=== PATIENT | male | born 1970 | race Caucasian/White ===

== ENCOUNTER → 2018-11-01 | Outpatient (CLI) | payer BC ==
[~2018-11-01] MED LIST: Aspir 8181 MG; CARV3.125 PO; DOCU100 PO; LOSA25 PO; XARELTO20 MG PO
[2018-11-01 14:26] LABS: BASOPHILS PERCENT AUTO 0 % (0-2); EOSINOPHILS ABSOLUTE AUTO 0.01 K/mm3 (0.00-0.68); EOSINOPHILS PERCENT AUTO 0 % (0-6); Hematocrit 37.5 % (37.0-53.0); Hemoglobin 13.1 g/dL (13.5-17.5); IMMATURE GRAN ABSOLUTE AUTO 0.03 K/mm3 (0.00-0.10); IMMATURE GRAN PERCENT AUTO 1 % (0-1); LYMPHOCYTES PERCENT AUTO 20 % (21-46); MONOCYTES PERCENT AUTO 9 % (4-13); Mean Corpuscular HGB 35.5 pg (26.0-34.0); Mean Corpuscular HGB Conc 34.9 g/dL (31.5-36.5); Mean Corpuscular Volume 102 fL (80-100); NEUTROPHILS ABSOLUTE AUTO 3.77 K/mm3 (1.96-9.15); NEUTROPHILS PERCENT AUTO 70 % (41-73); RDW Coefficient Variation 15.4 % (11.7-14.2); Red Blood Cell Count 3.69 M/mm3 (4.30-5.90); White Blood Cell Count 5.41 K/mm3 (4.00-11.30)
[2018-11-01 14:31] LABS: Mean Platelet Volume 11.5 fL (9.1-12.4); Platelet Count 72 K/mm3 (150-400)
[2018-11-01 14:37] LABS: Alanine Aminotransfer (ALT/SGP 54 U/L (12-78); Albumin/Globulin Ratio 0.4 (0.8-1.8); Alk Phos 188 U/L (40-126); Anion Gap 4 mmol/L (6-16); Aspartate Aminotrans (AST/SGOT 138 U/L (12-37); Bilirubin, Total 7.3 mg/dL (0.1-1.0); Blood Urea Nitrogen 9 mg/dL (8-24); Bun/Creatinine Ratio 17.6 (12.0-20.0); CO2, Blood 33 mmol/L (21-32); Chloride, Blood 100 mmol/L (98-108); Creatinine, Blood 0.51 mg/dL (0.60-1.20); Globulin, Blood 4.6 g/dL (2.2-4.0); Glomerular Filtration Rate >60 (60-); Glucose, Blood 110 mg/dL (70-99); Potassium, Blood 3.7 mmol/L (3.5-5.5); Sodium, Blood 137 mmol/L (136-145); Total Protein, Blood 6.6 g/dL (6.4-8.2)
[2018-11-01 15:08] LABS: International Normalized Ratio 2.17; Prothrombin Time Results 21.4 Sec (9.7-11.5)
== END | disposition home or self-care (01) ==
LOC: LAB SHORT 14:21 → LAB EV 14:21
PROVIDERS: Family Medicine
DX: G71.11 Myotonic muscular dystrophy (principal)
CPT/HCPCS: 80053; 85025; 85610; 85730

== ENCOUNTER 2018-11-10 12:59 | Inpatient (IN) | payer BC, MEDICARE ==
[~2018-11-10] VITALS: Ht 170.2 cm; Wt 92.7 kg
[~2018-11-10 12:59] MED LIST changes: -Aspir 8181 MG; +Aspir 8181 MG PO; -LOSA25 PO
[2018-11-10 13:46] LABS: BASOPHILS ABSOLUTE AUTO 0.05 K/mm3 (0.00-0.23); BASOPHILS PERCENT AUTO 1 % (0-2); EOSINOPHILS ABSOLUTE AUTO 0.15 K/mm3 (0.00-0.68); EOSINOPHILS PERCENT AUTO 3 % (0-6); Hematocrit 40.7 % (37.0-53.0); Hemoglobin 13.5 g/dL (13.5-17.5); IMMATURE GRAN ABSOLUTE AUTO 0.06 K/mm3 (0.00-0.10); IMMATURE GRAN PERCENT AUTO 1 % (0-1); LYMPHOCYTES ABSOLUTE AUTO 1.15 K/mm3 (0.84-5.20); LYMPHOCYTES PERCENT AUTO 20 % (21-46); MONOCYTES ABSOLUTE AUTO 1.07 K/mm3 (0.16-1.47); MONOCYTES PERCENT AUTO 18 % (4-13); Mean Corpuscular HGB 34.8 pg (26.0-34.0); Mean Corpuscular HGB Conc 33.2 g/dL (31.5-36.5); NEUTROPHILS ABSOLUTE AUTO 3.32 K/mm3 (1.96-9.15); NEUTROPHILS PERCENT AUTO 57 % (41-73); RDW Coefficient Variation 14.9 % (11.7-14.2); RDW Standard Deviation 57.8 fL (35.1-46.3); Red Blood Cell Count 3.88 M/mm3 (4.30-5.90)
[2018-11-10 13:48] LABS: Mean Corpuscular Volume 105 fL (80-100); Mean Platelet Volume 11.5 fL (9.1-12.4); Platelet Count 66 K/mm3 (150-400)
[2018-11-10 13:57] LABS: Alanine Aminotransfer (ALT/SGP 75 U/L (12-78); Albumin, Blood 1.8 g/dL (3.4-5.0); Albumin/Globulin Ratio 0.4 (0.8-1.8); Alk Phos 209 U/L (50-136); Anion Gap 4 mmol/L (6-16); Aspartate Aminotrans (AST/SGOT 143 U/L (12-37); Bilirubin, Total 8.2 mg/dL (0.1-1.0); Blood Urea Nitrogen 8 mg/dL (8-24); Bun/Creatinine Ratio 34.5 (12.0-20.0); CO2, Blood 31 mmol/L (21-32); Calcium, Blood 7.8 mg/dL (8.5-10.1); Chloride, Blood 104 mmol/L (98-108); Creatinine, Blood 0.23 mg/dL (0.60-1.20); Globulin, Blood 4.3 g/dL (2.2-4.0); Glomerular Filtration Rate >60 (60-); Glucose, Blood 93 mg/dL (70-99); Potassium, Blood 3.5 mmol/L (3.5-5.5); Sodium, Blood 139 mmol/L (136-145); Total Protein, Blood 6.1 g/dL (6.4-8.2)
[2018-11-10 15:37] LABS: PCO2 Arterial 52.3 mmHg (35-45); PO2 Arterial 52.6 mmHg (80-100); pH Blood Arterial 7.42 (7.35-7.45)
[2018-11-10] MEDS ORDERED: Omeprazole20 M1 PO (17:09)
[2018-11-10] MEDS ORDERED: LOSA25 PO (18:05)
[2018-11-10] MEDS ORDERED: ALBU90OI INH (18:06)
[2018-11-10 18:47] LABS: Source, Urine Catheter
[2018-11-10 19:11] LABS: Blood, Urine 5+ (Neg); Glucose Qualitative, Urine Neg (Neg); Ketones, Urine Neg (Neg); Leukocyte Esterase, Urine 1+ (Neg); Nitrite, Urine Pos (Neg); Protein, Urine 2+ (Neg); Urobilinogen, Urine 4+ (Normal)
[2018-11-10 19:54] LABS: Appearance, Urine Hazy (Clear); Bilirubin, Urine 3+ (Neg); Color, Urine Amber (P-Yellow)
[2018-11-10 19:55] LABS: Red Blood Cells, Urine 50-100 /hpf (0-2)
[2018-11-10 19:56] LABS: Bacteria Many /hpf; Hyaline Casts 0-2 /lpf (0-2); Mucus Mod (0-Heavy); Squamous Epithelial Cells Not Seen /hpf (Few); Transitional Epithelial Cells Rare /hpf (0-Rare)
[2018-11-10 23:19] LABS: Hemoglobin 12.9 g/dL (13.5-17.5)
[2018-11-10 23:32] LABS: Anion Gap 6 mmol/L (6-16); Blood Urea Nitrogen 7 mg/dL (8-24); Bun/Creatinine Ratio 22.3 (12.0-20.0); CO2, Blood 32 mmol/L (21-32); Calcium, Blood 7.8 mg/dL (8.5-10.1); Chloride, Blood 102 mmol/L (98-108); Creatinine, Blood 0.31 mg/dL (0.60-1.20); Glomerular Filtration Rate >60 (60-); Glucose, Blood 92 mg/dL (70-99); Magnesium, Blood 1.9 mg/dL (1.6-2.4); Potassium, Blood 3.2 mmol/L (3.5-5.5); Sodium, Blood 140 mmol/L (136-145)
[2018-11-10 23:49] LABS: BASOPHILS ABSOLUTE AUTO 0.07 K/mm3 (0.00-0.23); BASOPHILS PERCENT AUTO 1 % (0-2); EOSINOPHILS ABSOLUTE AUTO 0.13 K/mm3 (0.00-0.68); EOSINOPHILS PERCENT AUTO 2 % (0-6); Hematocrit 39.2 % (37.0-53.0); IMMATURE GRAN ABSOLUTE AUTO 0.06 K/mm3 (0.00-0.10); IMMATURE GRAN PERCENT AUTO 1 % (0-1); LYMPHOCYTES ABSOLUTE AUTO 0.66 K/mm3 (0.84-5.20); LYMPHOCYTES PERCENT AUTO 12 % (21-46); MONOCYTES PERCENT AUTO 16 % (4-13); Mean Corpuscular HGB 35.6 pg (26.0-34.0); Mean Corpuscular HGB Conc 33.2 g/dL (31.5-36.5); Mean Corpuscular Volume 107 fL (80-100); Mean Platelet Volume 11.3 fL (9.1-12.4); NEUTROPHILS ABSOLUTE AUTO 3.88 K/mm3 (1.96-9.15); NEUTROPHILS PERCENT AUTO 68 % (41-73); Platelet Count 66 K/mm3 (150-400); RDW Coefficient Variation 14.8 % (11.7-14.2); RDW Standard Deviation 59.7 fL (35.1-46.3); Red Blood Cell Count 3.65 M/mm3 (4.30-5.90)
[2018-11-11 00:08] LABS: International Normalized Ratio 2.11; Prothrombin Time Results 20.9 Sec (9.7-11.5)
[2018-11-11 02:16] LABS: Hematocrit 32.2 % (37.0-53.0); Hemoglobin 10.5 g/dL (13.5-17.5)
[2018-11-11 05:30] LABS: BASOPHILS ABSOLUTE AUTO 0.02 K/mm3 (0.00-0.23); BASOPHILS PERCENT AUTO 0 % (0-2); EOSINOPHILS ABSOLUTE AUTO 0.07 K/mm3 (0.00-0.68); EOSINOPHILS PERCENT AUTO 2 % (0-6); Hematocrit 29.3 % (37.0-53.0); Hemoglobin 9.5 g/dL (13.5-17.5); IMMATURE GRAN ABSOLUTE AUTO 0.04 K/mm3 (0.00-0.10); IMMATURE GRAN PERCENT AUTO 1 % (0-1); LYMPHOCYTES ABSOLUTE AUTO 0.77 K/mm3 (0.84-5.20); LYMPHOCYTES PERCENT AUTO 17 % (21-46); MONOCYTES ABSOLUTE AUTO 0.66 K/mm3 (0.16-1.47); MONOCYTES PERCENT AUTO 14 % (4-13); Mean Corpuscular HGB 35.6 pg (26.0-34.0); Mean Corpuscular HGB Conc 32.4 g/dL (31.5-36.5); NEUTROPHILS ABSOLUTE AUTO 3.07 K/mm3 (1.96-9.15); NEUTROPHILS PERCENT AUTO 66 % (41-73); NRBC ABSOLUTE 0.02 K/mm3 (0.00-0.02); NRBC Auto 0.4 /100 WBC (0.0-0.2); RDW Standard Deviation 60.5 fL (35.1-46.3); Red Blood Cell Count 2.67 M/mm3 (4.30-5.90); White Blood Cell Count 4.63 K/mm3 (4.00-11.30)
[2018-11-11 05:47] LABS: International Normalized Ratio 1.63
[2018-11-11 05:48] LABS: Mean Corpuscular Volume 110 fL (80-100)
[2018-11-11 05:49] LABS: Platelet Count 44 K/mm3 (150-400)
[2018-11-11 05:50] LABS: Alanine Aminotransfer (ALT/SGP 55 U/L (12-78); Albumin, Blood 2.2 g/dL (3.4-5.0); Albumin/Globulin Ratio 0.7 (0.8-1.8); Alk Phos 122 U/L (50-136); Anion Gap 7 mmol/L (6-16); Aspartate Aminotrans (AST/SGOT 105 U/L (12-37); Bilirubin, Total 7.3 mg/dL (0.1-1.0); Blood Urea Nitrogen 7 mg/dL (8-24); Bun/Creatinine Ratio 25.5 (12.0-20.0); CO2, Blood 26 mmol/L (21-32); Calcium, Blood 7.5 mg/dL (8.5-10.1); Chloride, Blood 107 mmol/L (98-108); Creatinine, Blood 0.28 mg/dL (0.60-1.20); Globulin, Blood 3.2 g/dL (2.2-4.0); Glomerular Filtration Rate >60 (60-); Glucose, Blood 135 mg/dL (70-99); Potassium, Blood 3.6 mmol/L (3.5-5.5); Sodium, Blood 140 mmol/L (136-145); Total Protein, Blood 5.4 g/dL (6.4-8.2)
[2018-11-11 05:55] LABS: Prothrombin Time Results 16.5 Sec (9.7-11.5)
--- NOTE | 2018-11-11 07:38 | NUR ---
ASSUMING CARE AND SHIFT SUMMARY PT WAS TRANSFERED FROM PCU AND ARRIVED TO THE UNIT AT APPROX 0200. PT IS BEING TRANSFERED TO THE ICU DUE TO HYPOTENSION. PT HAS SUPRAPUBIC CATH IN PLACE THAT WAS PLACED EMERGENTLY DUE TO URINARY RETENTION AND INABILITY TO PLACE WELCH CATH IN ER. PT HAS BEEN HAVING ARASH BLOOD DRAINAGE FROM CATH. CLOTS OBSERVED IN DRAINAGE BAG. PT HAS HX OR NON-ALCOHOLIC CIRROSIS, AND MUSCULAR DYSTROPHY. PT APPEARS JAUNDICED AND IS HIGHLY LETHARGIC. PT HAS HX OF ASPIRATION AND HAS PNEUMONIA AT THIS TIME. UPON ARIVAL TO THE UNIT PT BP IS IN THE 60'S TO 70'S SYSTOLIC. DR BLANCA CALLED. ORDERS RECEIVED TO PROVIDE 500ML BOLUS OF NS, 25G ALBUMIN, 2 UNITS FFP, NS AT 75ML/HR, AND TO INITIATE LEVOPHED IF BP DOES NOT RESPOND TO OTHER MEDICATIONS/INTERVENTIONS. DR BLANCA INFORMED THAT PT ONLY HAS PERIPHERAL LINE. INSTRUCTIONS RECEIVED TO RUN LOW DOSE LEVOPHED THROUGH PERIPHERAL LINE. MEDICATIONS PROVIDED ORDERED. PT APPEARED TO BE HAVING VERY SLOW OUTPUT FROM SUPRAPUBIC CATH. BLADDER SCAN PERFORMED WITH A RESULT OF APPROX 300CC. PER REPORT AT TIME OF TRANSFER OF CARE PT HAD BLADDER SCAN VOLUME OF APPROX 200ML. DR HERNANDEZ CALLED, INSTRUCTIONS RECEIVED TO FLUSH 20ML OF STERILE SALINE THROUGH CATH LINE IF OCCLUDED. INSTRUCTIONS RECEIVED TO CALL DR HERNANDEZ FOR FURTHER INSTRUCTIONS IF LINE REMAINS OCCLUDED AND/OR IF THERE ARE ANY CONCERNS RELATED TO SUPRAPUBIC CATH. AFTER ADMINISTRATION OF ABOVE STATED MEDICATIONS PT REMAINS HYPOTENSIVE AND LEVOPHED WAS STARTED AT 6MCG/MIN. PT BP INCREASED TO THE 90'S SYSTOLIC BUT IS FLUCTUATING FROM 90'S TO 80'S SYSTOLIC. PT REMAINS AT BEDSIDE. WILL REPORT OFF TO [facility] DAY SHIFT NURSE.
--- NOTE | 2018-11-11 08:51 | NUR ---
DR. HERNANDEZ CALL TO DR. HERNANDEZ WITH UPDATE ON PT, DISCUSSED CONTINUED ARASH BLOOD OUTPUT FROM CATHETER, INCREASING BLADDER SCAN VOLUMES DESPITE OUTPUT. HE STATES TO CONTINUE TO IRRIGATE CATHETER AND TRY TO ASPIRATE CLOTS. HE STATES HE WILL PLACE LARGER DRAINAGE TUBING ON WEDNESDAY.
[2018-11-11 11:15] LABS: Hematocrit 28.8 % (37.0-53.0); Hemoglobin 9.5 g/dL (13.5-17.5); Mean Corpuscular HGB 35.3 pg (26.0-34.0); Mean Platelet Volume 11.7 fL (9.1-12.4); RDW Standard Deviation 58.8 fL (35.1-46.3); Red Blood Cell Count 2.69 M/mm3 (4.30-5.90)
[2018-11-11 11:24] LABS: Mean Corpuscular Volume 107 fL (80-100)
[2018-11-11 11:26] LABS: Platelet Count 46 K/mm3 (150-400)
--- NOTE | 2018-11-11 11:30 | NUR ---
RADIOLOGIST/DR. SMITH RADIOLOGIST DR. LEBLANC CALLED WITH CONCERNS OF CATHETER PLACEMENT, STATING HE BELIEVED BASED ON IMAGING THAT THE CATHETER MAY BE DRAINING ASCITIC FLUID AND NOT BE IN THE BLADDER. HE SPOKE WITH DR. SMITH AND ORDERS RECEIVED FOR BEDSIDE ULTRASOUND TO CHECK FOR PLACEMENT OF CATHETER. BASED ON ULTRASOUND, CATHETER NOT IN THE BLADDER. DR. SMITH CALLED TO [facility] TO CONSULT UROLOGY - PLAN TO TRANSFER PT TO [facility] UNDER CARE OF DR. GRESHAM.
--- NOTE | 2018-11-11 12:22 | NUR ---
[facility] TRANSFER PT TO [facility] ER FOR PROCEDURE WITH UROLOGY DR. GRESHAM. CURRENT PLAN IS FOR PT TO BE TRANSPORTED BACK HERE AFTER PROCEDURE. PT TRANSFERRED WITH NS INFUSING AT 75ML/HR, LEVOPHED ON STANDBY BUT SENT WITH EMS IN CASE PT BECOMES HYPOTENSIVE AGAIN. PT'S [place] ACCOMPANIED FOR TRANSPORT.
--- NOTE | 2018-11-11 17:21 | NUR ---
DR. SMITH CALLED AND STATES HE SPOKE WITH [facility] PHYSICIAN AND PT IS GOING TO BE STAYING AT [facility]
== END 2018-11-11 17:23 | disposition short-term general hospital (02) | DRG 698 ==
LOC: ER 12:59 → ICUE 18:27 → ERHOLD 18:27 → PCU 21:25 → ICUE 11-11 01:49
PROVIDERS: Internal Medicine; Internal Medicine Gastroenterology; Nurse Practitioner Acute Care; ADMIT Internal Medicine
PROC: 02HV33Z Insertion of Infusion Device into Superior Vena Cava, Percutaneous Approach (ICD-10-PCS; principal; 2018-11-10)
PROC: 3E043XZ Introduction of Vasopressor into Central Vein, Percutaneous Approach (ICD-10-PCS; 2018-11-10)
PROC: 30233K1 Transfusion of Nonautologous Frozen Plasma into Peripheral Vein, Percutaneous Approach (ICD-10-PCS; 2018-11-10)
PROC: 0T9B30Z Drainage of Bladder with Drainage Device, Percutaneous Approach (ICD-10-PCS; 2018-11-11)
DX: N32.0 Bladder-neck obstruction (principal); J69.0 Pneumonitis due to inhalation of food and vomit; G93.41 Metabolic encephalopathy; K76.6 Portal hypertension; I50.22 Chronic systolic (congestive) heart failure; I42.9 Cardiomyopathy, unspecified; D62 Acute posthemorrhagic anemia; T83.83XA Hemorrhage due to genitourinary prosthetic devices, implants and grafts, initial encounter; N40.1 Benign prostatic hyperplasia with lower urinary tract symptoms; R33.8 Other retention of urine; I48.2 Chronic atrial fibrillation; Z79.82 Long term (current) use of aspirin; G71.11 Myotonic muscular dystrophy; R53.81 Other malaise; E80.6 Other disorders of bilirubin metabolism; K75.81 Nonalcoholic steatohepatitis (NASH); D69.59 Other secondary thrombocytopenia; I11.0 Hypertensive heart disease with heart failure
CPT/HCPCS: 36415; 36430; 36569; 36600; 51102; 51798; 70450; 71045; 72192; 76857; 80048; 80053; 81001; 82140; 82803; 83605; 83690; 83735; 83880; 85014; 85018; 85025; 85027; 85379; 85384; 85610; 85670; 85730; 86850; 86900; 86901; 87040; 87086; 93005; 93010; 94640; 96365; 99152; 99153; 99285-25; C1729; C1751; C1769; C1894; J0456; J1170; J2250; J2543; J3010; J7030; J7040; J7050; J7060; P9046; P9059; Q9967